=== PATIENT | female | born 1945 | race Caucasian/White ===

== ENCOUNTER 2016-05-19 07:07 | Outpatient (RCR) | payer OTHER ==
[~2016-05-19] VITALS: Ht 170.2 cm; Wt 70.0 kg
[2016-05-19] MEDS ORDERED: NS 550ML IV ONE ×2 (07:08)
[2016-05-19] MEDS ORDERED: Methohexital Sodium Syr 100mg/10ml IVP ONE ×2 (07:08)
[2016-05-19] MEDS ORDERED: Succinylcholine 20mg/ml 10ml vial ONE ×2 (07:08)
[2016-05-26] MEDS ORDERED: Succinylcholine 20mg/ml 10ml vial ONE (08:00)
[2016-05-26] MEDS ORDERED: Methohexital Sodium Syr 100mg/10ml IVP ONE (08:00)
[2016-05-26] MEDS ORDERED: NS 550ML IV ONE (08:00)
[2016-05-26] MEDS ORDERED: Atropine Sulfate 0.4mg/ml inj IVP PRN (10:18)
[2016-05-31] MEDS ORDERED: NS 550ML IV ONE (07:00)
[2016-05-31] MEDS ORDERED: Methohexital Sodium 500mg Vial IVP ONE (07:00)
[2016-05-31] MEDS ORDERED: Succinylcholine 20mg/ml 10ml vial ONE (07:00)
[2016-06-02] MEDS ORDERED: Succinylcholine 20mg/ml 10ml vial ONE (07:00)
[2016-06-02] MEDS ORDERED: Methohexital Sodium Syr 100mg/10ml IVP ONE (07:00)
[2016-06-02] MEDS ORDERED: NS 550ML IV ONE (07:00)
[2016-06-04] MEDS ORDERED: NS 550ML IV ONE (08:59)
[2016-06-04] MEDS ORDERED: Methohexital Sodium 500mg Vial IVP ONE (08:59)
[2016-06-04] MEDS ORDERED: Succinylcholine 20mg/ml 10ml vial ONE (08:59)
== END 2016-06-04 | disposition home or self-care (01) ==
LOC: ECT 07:07
DX: F31.63 Bipolar disorder, current episode mixed, severe, without psychotic features (principal); G62.9 Polyneuropathy, unspecified; I12.9 Hypertensive chronic kidney disease with stage 1 through stage 4 chronic kidney disease, or unspecified chronic kidney disease; N18.1 Chronic kidney disease, stage 1; G56.02 Carpal tunnel syndrome, left upper limb; M81.0 Age-related osteoporosis without current pathological fracture; Z88.6 Allergy status to analgesic agent; Z88.0 Allergy status to penicillin
CPT/HCPCS: 90870; J0330; J2405; J3490; J7040

== ENCOUNTER 2016-06-07 12:55 | Outpatient (RCR) | payer OTHER ==
[~2016-06-07] VITALS: Ht 170.2 cm; Wt 64.0 kg
[2016-06-07] MEDS ORDERED: Methohexital Sodium 500mg Vial IVP ONE (12:56)
[2016-06-07] MEDS ORDERED: Succinylcholine 20mg/ml 10ml vial ONE (12:56)
[2016-06-07] MEDS ORDERED: NS 550ML IV ONE (12:56)
[2016-06-11] MEDS ORDERED: Glycopyrrolate 0.2mg/ml 1ml Vial ONE (08:00)
[2016-06-11] MEDS ORDERED: NS 550ML IV ONE ×2 (08:00)
[2016-06-11] MEDS ORDERED: Diazepam 10mg/2ml Inj ONE (08:00)
[2016-06-11] MEDS ORDERED: Methohexital Sodium Syr 100mg/10ml IVP ONE (08:00)
[2016-06-11] MEDS ORDERED: Ketamine 500mg Inj ONE (08:00)
[2016-06-11] MEDS ORDERED: Succinylcholine 20mg/ml 10ml vial ONE ×2 (08:00)
[2016-06-25] MEDS ORDERED: NS 550ML IV ONE (08:00)
[2016-06-25] MEDS ORDERED: Methohexital Sodium Syr 100mg/10ml IVP ONE (08:00)
[2016-06-25] MEDS ORDERED: Succinylcholine 20mg/ml 10ml vial ONE (08:00)
== END 2016-07-04 | disposition home or self-care (01) ==
LOC: ECT 12:55
DX: F31.63 Bipolar disorder, current episode mixed, severe, without psychotic features (principal)
CPT/HCPCS: 90870; J0330; J2405; J3490; J7040

== ENCOUNTER 2016-07-05 06:42 | Outpatient (RCR) | payer OTHER ==
[~2016-07-05] VITALS: Ht 170.2 cm; Wt 64.0 kg
[2016-07-05] MEDS ORDERED: Methohexital Sodium Syr 100mg/10ml IVP ONE (06:43)
[2016-07-05] MEDS ORDERED: Succinylcholine 20mg/ml 10ml vial ONE (06:43)
[2016-07-05] MEDS ORDERED: NS 550ML IV ONE (06:43)
[2016-07-07] MEDS ORDERED: Methohexital Sodium Syr 100mg/10ml IVP ONE (07:00)
[2016-07-07] MEDS ORDERED: NS 550ML IV ONE (07:00)
[2016-07-07] MEDS ORDERED: Succinylcholine 20mg/ml 10ml vial ONE (07:00)
[2016-07-09] MEDS ORDERED: Succinylcholine 20mg/ml 10ml vial ONE (07:00)
[2016-07-09] MEDS ORDERED: NS 550ML IV ONE (07:00)
[2016-07-09] MEDS ORDERED: Methohexital Sodium Syr 100mg/10ml IVP ONE (07:00)
[2016-07-12] MEDS ORDERED: Succinylcholine 20mg/ml 10ml vial ONE (08:00)
[2016-07-12] MEDS ORDERED: NS 550ML IV ONE (08:00)
[2016-07-12] MEDS ORDERED: Methohexital Sodium Syr 100mg/10ml IVP ONE (08:00)
[2016-07-14] MEDS ORDERED: NS 550ML IV ONE (07:00)
[2016-07-14] MEDS ORDERED: Succinylcholine 20mg/ml 10ml vial ONE (07:00)
[2016-07-14] MEDS ORDERED: Atropine Sulfate 0.4mg/ml inj IVP PRN (09:31)
[2016-07-16] MEDS ORDERED: NS 550ML IV ONE (12:30)
[2016-07-16] MEDS ORDERED: Methohexital Sodium Syr 100mg/10ml IVP ONE (12:30)
[2016-07-16] MEDS ORDERED: Succinylcholine 20mg/ml 10ml vial ONE (12:30)
[2016-07-19] MEDS ORDERED: NS 550ML IV ONE (07:00)
[2016-07-19] MEDS ORDERED: Succinylcholine 20mg/ml 10ml vial ONE (07:00)
[2016-07-19] MEDS ORDERED: Methohexital Sodium Syr 100mg/10ml IVP ONE (07:00)
[2016-07-23] MEDS ORDERED: Succinylcholine 20mg/ml 10ml vial ONE (08:00)
[2016-07-23] MEDS ORDERED: Methohexital Sodium Syr 100mg/10ml IVP ONE (08:00)
[2016-07-23] MEDS ORDERED: NS 550ML IV ONE (08:00)
== END 2016-08-04 | disposition home or self-care (01) ==
LOC: ECT 06:42
DX: F31.63 Bipolar disorder, current episode mixed, severe, without psychotic features (principal)
CPT/HCPCS: 90870; J0330; J2405; J7040

== ENCOUNTER 2016-08-06 05:37 | Outpatient (RCR) | payer MEDICARE, OTHER ==
[~2016-08-06] VITALS: Ht 170.2 cm; Wt 64.0 kg
[2016-08-16] MEDS ORDERED: Methohexital Sodium 500mg Vial IVP ONE (19:49)
[2016-08-16] MEDS ORDERED: Succinylcholine 20mg/ml 10ml vial ONE (19:49)
[2016-08-16] MEDS ORDERED: NS 550ML IV ONE (19:49)
[2016-09-01] MEDS ORDERED: NS 550ML IV ONE (12:30)
[2016-09-01] MEDS ORDERED: Succinylcholine 20mg/ml 10ml vial ONE (12:30)
[2016-09-01] MEDS ORDERED: Methohexital Sodium Syr 100mg/10ml IVP ONE (12:30)
== END 2016-09-03 | disposition home or self-care (01) ==
LOC: ECT 05:37
DX: F31.61 Bipolar disorder, current episode mixed, mild (principal)
CPT/HCPCS: 90870; J0330; J2405; J3490; J7040

== ENCOUNTER 2016-10-11 07:15 | Outpatient (RCR) | payer MEDICARE ==
[~2016-10-11] VITALS: Ht 170.2 cm; Wt 64.0 kg
[2016-10-18] MEDS ORDERED: Methohexital Sodium Syr 100mg/10ml IVP ONE (07:00)
[2016-10-18] MEDS ORDERED: Succinylcholine 20mg/ml 10ml vial ONE (07:00)
[2016-10-18] MEDS ORDERED: NS 550ML IV ONE (07:00)
[2016-10-18] MEDS ORDERED: Atropine Sulfate 0.4mg/ml inj IVP PRN (09:48)
== END 2016-11-04 | disposition home or self-care (01) ==
LOC: ECT 07:15
DX: F31.63 Bipolar disorder, current episode mixed, severe, without psychotic features (principal)
CPT/HCPCS: 90870; J0330; J2405; J7040

== ENCOUNTER 2016-11-10 07:38 | Outpatient (RCR) | payer MEDICARE ==
[~2016-11-10] VITALS: Ht 170.2 cm; Wt 64.4 kg
[2016-11-10] MEDS ORDERED: NS 500ML IV ONE (07:39)
[2016-11-10] MEDS ORDERED: Methohexital Sodium Syr 100mg/10ml IVP ONE (07:39)
[2016-11-10] MEDS ORDERED: Succinylcholine 20mg/ml 10ml vial ONE (07:39)
[2016-11-10] MEDS ORDERED: Sodium Chloride 500ML 500 ML IV ONE (16:45)
[2016-11-29] MEDS ORDERED: Succinylcholine 20mg/ml 10ml vial ONE (06:00)
[2016-11-29] MEDS ORDERED: Methohexital Sodium Syr 100mg/10ml IVP ONE (06:00)
[2016-11-29] MEDS ORDERED: NS 500ML IV ONE (06:00)
[2016-11-29] MEDS ORDERED: Sodium Chloride 500ML 500 ML IV ONE (10:40)
== END 2016-12-04 | disposition home or self-care (01) ==
LOC: ECT 07:38
DX: F31.63 Bipolar disorder, current episode mixed, severe, without psychotic features (principal)
CPT/HCPCS: 90870; J0330; J2405; J7040

== ENCOUNTER 2016-12-06 10:13 | Outpatient (RCR) | payer MEDICARE ==
[~2016-12-06] VITALS: Ht 170.2 cm; Wt 64.0 kg
[2016-12-06] MEDS ORDERED: Succinylcholine 20mg/ml 10ml vial ONE ×5 (10:14)
[2016-12-06] MEDS ORDERED: Methohexital Sodium 500mg Vial IVP ONE (10:14)
[2016-12-06] MEDS ORDERED: Methohexital Sodium Syr 100mg/10ml IVP ONE ×4 (10:14)
[2016-12-06] MEDS ORDERED: NS 500ML IV ONE ×5 (10:14)
[2016-12-06] MEDS ORDERED: Sodium Chloride 500ML 500 ML IV ONE (10:57)
[2016-12-10] MEDS ORDERED: Succinylcholine 20mg/ml 10ml vial ONE (07:00)
[2016-12-10] MEDS ORDERED: Methohexital Sodium Syr 100mg/10ml IVP ONE (07:00)
[2016-12-10] MEDS ORDERED: NS 500ML IV ONE (07:00)
[2016-12-10] MEDS ORDERED: Sodium Chloride 500ML 500 ML IV ONE (09:20)
[2016-12-13] MEDS ORDERED: Methohexital Sodium Syr 100mg/10ml IVP ONE (07:00)
[2016-12-13] MEDS ORDERED: NS 500ML IV ONE (07:00)
[2016-12-13] MEDS ORDERED: Succinylcholine 20mg/ml 10ml vial ONE (07:00)
[2016-12-13] MEDS ORDERED: Sodium Chloride 500ML 500 ML IV ONE (09:53)
[2016-12-15] MEDS ORDERED: NS 500ML IV ONE (10:26)
[2016-12-15] MEDS ORDERED: Succinylcholine 20mg/ml 10ml vial ONE (10:26)
[2016-12-15] MEDS ORDERED: Methohexital Sodium Syr 100mg/10ml IVP ONE (10:26)
[2016-12-15] MEDS ORDERED: Sodium Chloride 500ML 500 ML IV ONE (10:26)
[2016-12-17] MEDS ORDERED: Succinylcholine 20mg/ml 10ml vial ONE (07:00)
[2016-12-17] MEDS ORDERED: Etomidate 40mg/20ml Inj IV ONE (07:00)
[2016-12-17] MEDS ORDERED: NS 500ML IV ONE (07:00)
[2016-12-17] MEDS ORDERED: Sodium Chloride 500ML 500 ML IV ONE (08:27)
[2016-12-22 10:52] VITALS: BP 136/79
[2016-12-22 11:10] VITALS: BP 134/75
[2016-12-22 11:15] VITALS: BP 141/79
[2016-12-22 11:20] VITALS: BP 136/58
[2016-12-22 11:25] VITALS: BP 118/58
[2016-12-24] MEDS ORDERED: Sodium Chloride 500ML 500 ML IV ONE (08:14)
[2016-12-24 08:15] VITALS: BP 144/59
[2016-12-24 08:20] VITALS: BP 139/60
[2016-12-24 08:25] VITALS: BP 135/52
[2016-12-24 08:30] VITALS: BP 120/55
[2016-12-24 11:18] VITALS: BP 120/55
[2016-12-27 09:40] VITALS: BP 142/67
[2016-12-27] MEDS ORDERED: Sodium Chloride 500ML 500 ML IV ONE (09:50)
[2016-12-27 09:55] VITALS: BP_SYST 148; BP_SYST 150; BP_DIAS 55; BP_DIAS 57
[2016-12-27 10:00] VITALS: BP 143/46
[2016-12-27 10:05] VITALS: BP 127/53
[2016-12-27 10:10] VITALS: BP 121/55
[2017-01-03] MEDS ORDERED: Methohexital Sodium Syr 100mg/10ml IVP ONE (07:00)
[2017-01-03] MEDS ORDERED: NS 500ML IV ONE (07:00)
[2017-01-03] MEDS ORDERED: Succinylcholine 20mg/ml 10ml vial ONE (07:00)
[2017-01-03] MEDS ORDERED: Sodium Chloride 500ML 500 ML IV ONE (08:32)
[2017-01-03 08:35] VITALS: BP 140/62
[2017-01-03 08:40] VITALS: BP 141/58
[2017-01-03 08:45] VITALS: BP 131/52
[2017-01-03 08:50] VITALS: BP 127/56
== END 2017-01-04 | disposition home or self-care (01) ==
LOC: ECT 10:13
DX: F31.63 Bipolar disorder, current episode mixed, severe, without psychotic features (principal)
CPT/HCPCS: 90870; J0330; J2405; J3490; J7040

== ENCOUNTER 2017-01-17 08:33 | Outpatient (RCR) | payer MEDICARE ==
[~2017-01-17] VITALS: Ht 170.2 cm; Wt 64.0 kg
[2017-01-19] MEDS ORDERED: Methohexital Sodium Syr 100mg/10ml IVP ONE (09:00)
[2017-01-19] MEDS ORDERED: Succinylcholine 20mg/ml 10ml vial ONE (09:00)
[2017-01-19] MEDS ORDERED: NS 500ML ONE (09:00)
[2017-01-19 10:13] VITALS: BP 150/64
[2017-01-19] MEDS ORDERED: Sodium Chloride 500ML 500 ML IV ONE (10:28)
[2017-01-19 10:30] VITALS: BP 130/68
[2017-01-19 10:35] VITALS: BP 129/52
[2017-01-19 10:40] VITALS: BP 132/52
[2017-01-19 10:45] VITALS: BP 134/46
[2017-02-02] MEDS ORDERED: Methohexital Sodium Syr 100mg/10ml IVP ONE (08:00)
[2017-02-02] MEDS ORDERED: NS 500ML ONE (08:00)
[2017-02-02] MEDS ORDERED: Succinylcholine 20mg/ml 10ml vial ONE (08:00)
[2017-02-02 09:36] VITALS: BP 158/81
[2017-02-02] MEDS ORDERED: Sodium Chloride 500ML 500 ML IV ONE (09:52)
[2017-02-02 09:55] VITALS: BP 140/62
[2017-02-02 10:00] VITALS: BP 140/58
[2017-02-02 10:05] VITALS: BP 139/58
[2017-02-02 10:10] VITALS: BP 142/58
== END 2017-02-03 | disposition home or self-care (01) ==
LOC: ECT 08:33
DX: F31.63 Bipolar disorder, current episode mixed, severe, without psychotic features (principal)
CPT/HCPCS: 90870; J0330; J2405; J7040

== ENCOUNTER 2017-02-09 06:56 | Outpatient (RCR) | payer MEDICARE ==
[~2017-02-09] VITALS: Ht 170.2 cm; Wt 64.0 kg
[2017-02-09] MEDS ORDERED: Succinylcholine 20mg/ml 10ml vial ONE (06:57)
[2017-02-09] MEDS ORDERED: Methohexital Sodium Syr 100mg/10ml IVP ONE (06:57)
[2017-02-09] MEDS ORDERED: NS 500ML ONE (06:57)
[2017-02-14 10:35] VITALS: BP 143/70
[2017-02-14] MEDS ORDERED: Sodium Chloride 500ML 500 ML IV ONE (10:49)
[2017-02-14 10:50] VITALS: BP 141/51
[2017-02-14 10:55] VITALS: BP 141/51
[2017-02-14 11:00] VITALS: BP 139/56
[2017-02-14 11:05] VITALS: BP 140/56
[2017-02-21] MEDS ORDERED: Succinylcholine 20mg/ml 10ml vial ONE (08:00)
[2017-02-21] MEDS ORDERED: NS 500ML ONE (08:00)
[2017-02-21] MEDS ORDERED: Methohexital Sodium Syr 100mg/10ml IVP ONE (08:00)
[2017-02-21 09:33] VITALS: BP 169/89
[2017-02-21] MEDS ORDERED: Sodium Chloride 500ML 500 ML IV ONE (09:44)
[2017-02-21 09:45] VITALS: BP 146/70
[2017-02-21 09:50] VITALS: BP 132/52
[2017-02-21 09:55] VITALS: BP 133/58
[2017-02-21 10:00] VITALS: BP 134/54
== END 2017-03-06 | disposition home or self-care (01) ==
LOC: ECT 06:56
DX: F31.63 Bipolar disorder, current episode mixed, severe, without psychotic features (principal)
CPT/HCPCS: 90870; J0330; J2405; J7040

== ENCOUNTER 2017-03-09 09:06 | Outpatient (RCR) | payer MEDICARE ==
[~2017-03-09] VITALS: Ht 170.2 cm; Wt 64.0 kg
[2017-03-09] MEDS ORDERED: NS 500ML ONE ×2 (09:07)
[2017-03-09] MEDS ORDERED: Methohexital Sodium Syr 100mg/10ml IVP ONE ×2 (09:07)
[2017-03-09] MEDS ORDERED: Succinylcholine 20mg/ml 10ml vial ONE ×2 (09:07)
[2017-03-09 10:37] VITALS: BP 159/68
[2017-03-09] MEDS ORDERED: Sodium Chloride 500ML 500 ML IV ONE (10:50)
[2017-03-09 10:51] VITALS: BP 132/55
[2017-03-09 10:56] VITALS: BP 140/57
[2017-03-09 11:01] VITALS: BP 141/57
[2017-03-09 11:06] VITALS: BP 146/69
[2017-03-16] MEDS ORDERED: Succinylcholine 20mg/ml 10ml vial ONE (07:00)
[2017-03-16] MEDS ORDERED: NS 500ML ONE (07:00)
[2017-03-16] MEDS ORDERED: Methohexital Sodium Syr 100mg/10ml IVP ONE (07:00)
[2017-03-16 11:02] VITALS: BP 161/90
[2017-03-16] MEDS ORDERED: Atropine Sulfate 0.4mg/ml inj IVP PRN (11:23)
[2017-03-16] MEDS ORDERED: Sodium Chloride 500ML 500 ML IV ONE (11:23)
[2017-03-16 11:25] VITALS: BP 137/64
[2017-03-16 11:30] VITALS: BP 133/60
[2017-03-16 11:35] VITALS: BP 132/61
[2017-03-16 11:40] VITALS: BP 135/64
[2017-03-23] MEDS ORDERED: Succinylcholine 20mg/ml 10ml vial ONE (08:00)
[2017-03-23] MEDS ORDERED: Methohexital Sodium Syr 100mg/10ml IVP ONE (08:00)
[2017-03-23] MEDS ORDERED: NS 500ML ONE (08:00)
[2017-03-23 10:27] VITALS: BP 153/79
[2017-03-23 10:45] VITALS: BP 137/61
[2017-03-23 10:50] VITALS: BP 145/74
[2017-03-23 10:55] VITALS: BP 134/58
[2017-03-23 11:00] VITALS: BP 139/72
[2017-03-24] MEDS ORDERED: Sodium Chloride 500ML 500 ML IV ONE (10:43)
[2017-03-28 11:00] VITALS: BP 151/89
[2017-03-28 11:15] VITALS: BP 129/64
[2017-03-28] MEDS ORDERED: Sodium Chloride 500ML 500 ML IV ONE (11:15)
[2017-03-28 11:20] VITALS: BP 142/71
[2017-03-28 11:25] VITALS: BP 132/65
[2017-03-28 11:30] VITALS: BP 135/63
[2017-03-30] MEDS ORDERED: NS 500ML ONE (07:00)
[2017-03-30] MEDS ORDERED: Methohexital Sodium Syr 100mg/10ml IVP ONE (07:00)
[2017-03-30] MEDS ORDERED: Succinylcholine 20mg/ml 10ml vial ONE (07:00)
[2017-03-30 11:19] VITALS: BP 137/84
[2017-03-30] MEDS ORDERED: Sodium Chloride 500ML 500 ML IV ONE (11:33)
[2017-03-30 11:35] VITALS: BP 145/60
[2017-03-30 11:40] VITALS: BP 139/52
[2017-03-30 11:45] VITALS: BP 139/52
[2017-03-30 11:50] VITALS: BP 138/48
== END 2017-04-06 | disposition home or self-care (01) ==
LOC: ECT 09:06
DX: F31.63 Bipolar disorder, current episode mixed, severe, without psychotic features (principal); I12.9 Hypertensive chronic kidney disease with stage 1 through stage 4 chronic kidney disease, or unspecified chronic kidney disease; N18.1 Chronic kidney disease, stage 1; G62.9 Polyneuropathy, unspecified; M81.0 Age-related osteoporosis without current pathological fracture; G56.02 Carpal tunnel syndrome, left upper limb
CPT/HCPCS: 90870; J0330; J2405; J7040

== ENCOUNTER 2017-04-11 06:08 | Outpatient (RCR) | payer MEDICARE ==
[~2017-04-11] VITALS: Ht 170.2 cm; Wt 64.0 kg
[2017-04-13] MEDS ORDERED: NS 500ML ONE (07:00)
[2017-04-13] MEDS ORDERED: Methohexital Sodium Syr 100mg/10ml IVP ONE (07:00)
[2017-04-13] MEDS ORDERED: Succinylcholine 20mg/ml 10ml vial ONE (07:00)
[2017-04-13 11:18] VITALS: BP 155/81
[2017-04-13 11:40] VITALS: BP 130/56
[2017-04-13] MEDS ORDERED: Sodium Chloride 500ML 500 ML IV ONE (11:40)
[2017-04-13 11:45] VITALS: BP 118/50
[2017-04-13 11:50] VITALS: BP 125/54
[2017-04-13 11:55] VITALS: BP 135/52
[2017-04-20] MEDS ORDERED: NS 500ML ONE (07:00)
[2017-04-20] MEDS ORDERED: Succinylcholine 20mg/ml 10ml vial ONE (07:00)
[2017-04-20] MEDS ORDERED: Methohexital Sodium Syr 100mg/10ml IVP ONE (07:00)
[2017-04-20 08:23] VITALS: BP 139/68
[2017-04-20] MEDS ORDERED: Sodium Chloride 500ML 500 ML IV ONE (08:37)
[2017-04-20 08:40] VITALS: BP 139/68
[2017-04-20 08:45] VITALS: BP 135/66
[2017-04-20 08:50] VITALS: BP 132/56
[2017-04-20 08:55] VITALS: BP 131/49
[2017-04-25] MEDS ORDERED: Albuterol/Ipratropium 3ml neb ONE (06:57)
[2017-04-25] MEDS ORDERED: Succinylcholine 20mg/ml 10ml vial ONE (07:00)
[2017-04-25] MEDS ORDERED: Methohexital Sodium Syr 100mg/10ml IVP ONE (07:00)
[2017-04-25] MEDS ORDERED: NS 500ML ONE (07:00)
[2017-04-25 08:42] VITALS: BP 145/54
[2017-04-25 09:01] VITALS: BP 135/58
[2017-04-25] MEDS ORDERED: Sodium Chloride 500ML 500 ML IV ONE (09:01)
[2017-04-25 09:06] VITALS: BP 134/56
[2017-04-25 09:11] VITALS: BP 126/56
[2017-04-25 09:16] VITALS: BP 128/48
[2017-05-02] MEDS ORDERED: Methohexital Sodium Syr 100mg/10ml IVP ONE (08:00)
[2017-05-02] MEDS ORDERED: NS 500ML ONE (08:00)
[2017-05-02] MEDS ORDERED: Succinylcholine 20mg/ml 10ml vial ONE (08:00)
[2017-05-02 09:02] VITALS: BP 155/76
[2017-05-02] MEDS ORDERED: Atropine Sulfate 0.4mg/ml inj IVP PRN (09:23)
[2017-05-02] MEDS ORDERED: Sodium Chloride 500ML 500 ML IV ONE (09:23)
[2017-05-02 09:25] VITALS: BP 129/53
[2017-05-02 09:30] VITALS: BP 126/53
[2017-05-02 09:35] VITALS: BP 126/49
[2017-05-02 09:40] VITALS: BP 122/53
[2017-05-03] MEDS ORDERED: Atropine Sulfate 0.4mg/ml inj IVP PRN (09:23)
[2017-05-03] MEDS ORDERED: Sodium Chloride 500ML 500 ML IV ONE (09:23)
== END 2017-05-04 | disposition home or self-care (01) ==
LOC: ECT 06:08
DX: F31.63 Bipolar disorder, current episode mixed, severe, without psychotic features (principal)
CPT/HCPCS: 90870; J0330; J2405; J7040; J7620

== ENCOUNTER 2017-05-11 07:05 | Outpatient (RCR) | payer MEDICARE ==
[~2017-05-11] VITALS: Ht 170.2 cm; Wt 64.0 kg
[~2017-05-11 07:05] MED LIST: Methohexital Sodium Syr 100mg/10ml IVP ONE; NS 500ML ONE; Succinylcholine 20mg/ml 10ml vial ONE
[2017-05-11 09:57] VITALS: BP 149/56
[2017-05-11] MEDS ORDERED: Sodium Chloride 500ML 500 ML IV ONE (10:12)
[2017-05-11 10:15] VITALS: BP 133/65
[2017-05-11 10:20] VITALS: BP 136/59
[2017-05-11 10:25] VITALS: BP 137/59
[2017-05-11 10:30] VITALS: BP 134/58
[2017-06-01] MEDS ORDERED: NS 500ML ONE (08:00)
[2017-06-01] MEDS ORDERED: Methohexital Sodium Syr 100mg/10ml IVP ONE (08:00)
[2017-06-01] MEDS ORDERED: Succinylcholine 20mg/ml 10ml vial ONE (08:00)
[2017-06-01 11:03] VITALS: BP 136/91
[2017-06-01] MEDS ORDERED: Sodium Chloride 500ML 500 ML IV ONE (11:23)
[2017-06-01 11:25] VITALS: BP 129/57
[2017-06-01 11:30] VITALS: BP 139/61
[2017-06-01 11:35] VITALS: BP 141/57
[2017-06-01 11:40] VITALS: BP 140/70
== END 2017-06-04 | disposition home or self-care (01) ==
LOC: ECT 07:05
DX: F31.63 Bipolar disorder, current episode mixed, severe, without psychotic features (principal)
CPT/HCPCS: 90870; J0330; J2405; J7040

== ENCOUNTER 2017-06-08 11:36 | Outpatient (RCR) | payer MEDICARE ==
[~2017-06-08] VITALS: Ht 170.2 cm; Wt 64.4 kg
[2017-06-08 10:20] VITALS: BP 137/66
[2017-06-08 10:25] VITALS: BP 134/71
[2017-06-08 10:30] VITALS: BP 140/62
[2017-06-08 10:40] VITALS: BP 137/66
[~2017-06-08 11:36] MED LIST changes: -Methohexital Sodium Syr 100mg/10ml IVP ONE; -NS 500ML ONE; +Sodium Chloride 500ML 500 ML IV ONE; -Succinylcholine 20mg/ml 10ml vial ONE
[2017-06-08] MEDS ORDERED: Methohexital Sodium 500mg Vial IVP ONE (11:37)
[2017-06-08] MEDS ORDERED: Succinylcholine 20mg/ml 10ml vial ONE ×2 (11:37)
[2017-06-08] MEDS ORDERED: Methohexital Sodium Syr 100mg/10ml IVP ONE (11:37)
[2017-06-08] MEDS ORDERED: NS 500ML ONE ×2 (11:37)
[2017-06-08 13:44] VITALS: BP 137/66
[2017-06-13 09:16] VITALS: BP 138/72
[2017-06-13 09:32] VITALS: BP 141/64
[2017-06-13] MEDS ORDERED: Sodium Chloride 500ML 500 ML IV ONE (09:32)
[2017-06-13 09:37] VITALS: BP 132/58
[2017-06-13 09:42] VITALS: BP 117/65
[2017-06-13 09:47] VITALS: BP_SYST 129; BP_SYST 139; BP_DIAS 52
[2017-06-22] MEDS ORDERED: Methohexital Sodium Syr 100mg/10ml IVP ONE (07:00)
[2017-06-22] MEDS ORDERED: Succinylcholine 20mg/ml 10ml vial ONE (07:00)
[2017-06-22] MEDS ORDERED: NS 500ML ONE (07:00)
[2017-06-22 08:55] VITALS: BP 148/80
[2017-06-22] MEDS ORDERED: Sodium Chloride 500ML 500 ML IV ONE (09:10)
[2017-06-22 09:15] VITALS: BP 130/47
[2017-06-22 09:20] VITALS: BP 125/53
[2017-06-22 09:25] VITALS: BP 97/71
[2017-06-22 09:30] VITALS: BP 122/56
== END 2017-07-04 | disposition home or self-care (01) ==
LOC: ECT 11:36
DX: F31.63 Bipolar disorder, current episode mixed, severe, without psychotic features (principal)
CPT/HCPCS: 90870; J0330; J2405; J3490; J7040

== ENCOUNTER 2017-07-06 05:49 | Outpatient (RCR) | payer MEDICARE ==
[~2017-07-06] VITALS: Ht 170.2 cm; Wt 64.0 kg
[2017-07-06] MEDS ORDERED: Methohexital Sodium Syr 100mg/10ml IVP ONE (05:50)
[2017-07-06] MEDS ORDERED: Succinylcholine 20mg/ml 10ml vial ONE (05:50)
[2017-07-06] MEDS ORDERED: NS 500ML ONE (05:50)
[2017-07-06 09:35] VITALS: BP 166/75
[2017-07-06] MEDS ORDERED: Sodium Chloride 500ML 500 ML IV ONE (09:58)
[2017-07-06 10:00] VITALS: BP 138/57
[2017-07-06 10:05] VITALS: BP 134/58
[2017-07-06 10:10] VITALS: BP 133/56
[2017-07-06 10:15] VITALS: BP 127/56
[2017-08-03] MEDS ORDERED: NS 500ML ONE (07:00)
[2017-08-03] MEDS ORDERED: Succinylcholine 20mg/ml 10ml vial ONE (07:00)
[2017-08-03] MEDS ORDERED: Methohexital Sodium Syr 100mg/10ml IVP ONE (07:00)
[2017-08-03 10:15] VITALS: BP 147/74
[2017-08-03 10:35] VITALS: BP 138/48
[2017-08-03] MEDS ORDERED: Sodium Chloride 500ML 500 ML IV ONE (10:38)
[2017-08-03 10:40] VITALS: BP 128/52
[2017-08-03 10:45] VITALS: BP 133/55
[2017-08-03 10:50] VITALS: BP 123/58
== END 2017-08-04 | disposition home or self-care (01) ==
LOC: ECT 05:49
DX: F31.63 Bipolar disorder, current episode mixed, severe, without psychotic features (principal)
CPT/HCPCS: 90870; J0330; J2405; J7040

== ENCOUNTER 2017-08-17 07:03 | Outpatient (RCR) | payer MEDICARE ==
[~2017-08-17] VITALS: Ht 33 cm; Wt 0.5 kg
[2017-08-22] MEDS ORDERED: Methohexital Sodium Syr 100mg/10ml IVP ONE (07:00)
[2017-08-22] MEDS ORDERED: NS 500ML ONE (07:00)
[2017-08-22] MEDS ORDERED: Succinylcholine 20mg/ml 10ml vial ONE (07:00)
[2017-08-22 07:34] VITALS: BP 151/79
[2017-08-22] MEDS ORDERED: Sodium Chloride 500ML 500 ML IV ONE (07:51)
[2017-08-22 07:55] VITALS: BP 137/67
[2017-08-22 08:00] VITALS: BP 136/53
[2017-08-22 08:05] VITALS: BP 133/69
[2017-08-22 08:10] VITALS: BP 141/90
== END 2017-09-03 | disposition home or self-care (01) ==
LOC: ECT 07:03
DX: F31.63 Bipolar disorder, current episode mixed, severe, without psychotic features (principal)
CPT/HCPCS: 90870; J0330; J2405; J7040

== ENCOUNTER 2017-09-12 05:38 | Outpatient (RCR) | payer MEDICARE ==
[~2017-09-12] VITALS: Ht 30.5 cm; Wt 0.5 kg
[2017-09-12] MEDS ORDERED: Methohexital Sodium Syr 100mg/10ml IVP ONE (05:39)
[2017-09-12] MEDS ORDERED: Succinylcholine 20mg/ml 10ml vial ONE (05:39)
[2017-09-12] MEDS ORDERED: NS 500ML ONE (05:39)
[2017-09-12] MEDS ORDERED: Sodium Chloride 500ML 500 ML IV ONE (09:14)
[2017-09-12 09:15] VITALS: BP 128/45
[2017-09-12 09:20] VITALS: BP 128/45
[2017-09-12 09:25] VITALS: BP 121/52
[2017-09-12 09:30] VITALS: BP 123/59
[2017-09-12 09:35] VITALS: BP 123/59
[2017-09-12 09:40] VITALS: BP 127/45
[2017-10-03] MEDS ORDERED: NS 500ML ONE (08:00)
[2017-10-03] MEDS ORDERED: Succinylcholine 20mg/ml 10ml vial ONE (08:00)
[2017-10-03] MEDS ORDERED: Methohexital Sodium Syr 100mg/10ml IVP ONE (08:00)
[2017-10-03 08:44] VITALS: BP 148/77
[2017-10-03] MEDS ORDERED: Sodium Chloride 500ML 500 ML IV ONE (08:57)
[2017-10-03 09:00] VITALS: BP 130/49
[2017-10-03 09:05] VITALS: BP 133/52
[2017-10-03 09:10] VITALS: BP 133/52
[2017-10-03 09:15] VITALS: BP 128/73
== END 2017-10-04 | disposition home or self-care (01) ==
LOC: ECT 05:38
DX: F31.63 Bipolar disorder, current episode mixed, severe, without psychotic features (principal)
CPT/HCPCS: 90870; J0330; J2405; J7040

== ENCOUNTER 2017-10-24 05:58 | Outpatient (RCR) | payer MEDICARE ==
[~2017-10-24] VITALS: Ht 170.2 cm; Wt 64.4 kg
[2017-11-02] MEDS ORDERED: Methohexital Sodium Syr 100mg/10ml IVP ONE (06:00)
[2017-11-02] MEDS ORDERED: Succinylcholine 20mg/ml 10ml vial ONE (06:00)
[2017-11-02] MEDS ORDERED: NS 500ML ONE (06:00)
[2017-11-02 08:33] VITALS: BP 138/86
[2017-11-02] MEDS ORDERED: Sodium Chloride 500ML 500 ML IV ONE (08:45)
[2017-11-02 08:50] VITALS: BP 119/58
[2017-11-02 08:55] VITALS: BP 121/51
[2017-11-02 09:00] VITALS: BP 125/52
[2017-11-02 09:05] VITALS: BP 130/48
== END 2017-11-04 | disposition home or self-care (01) ==
LOC: ECT 05:58
DX: F31.63 Bipolar disorder, current episode mixed, severe, without psychotic features (principal)
CPT/HCPCS: 90870; J0330; J2405; J7040

== ENCOUNTER 2017-11-21 08:24 | Outpatient (RCR) | payer MEDICARE ==
[~2017-11-21] VITALS: Ht 170.2 cm; Wt 64.0 kg
[2017-11-25] MEDS ORDERED: Methohexital Sodium Syr 100mg/10ml IVP ONE (07:00)
[2017-11-25] MEDS ORDERED: Succinylcholine 20mg/ml 10ml vial ONE (07:00)
[2017-11-25] MEDS ORDERED: NS 500ML ONE (07:00)
[2017-11-25 10:26] VITALS: BP 158/92
[2017-11-25] MEDS ORDERED: Sodium Chloride 500ML 500 ML IV ONE (10:39)
[2017-11-25 10:40] VITALS: BP 123/53
[2017-11-25 10:45] VITALS: BP 135/54
[2017-11-25 10:50] VITALS: BP 134/54
== END 2017-12-04 | disposition home or self-care (01) ==
LOC: ECT 08:24
DX: F31.63 Bipolar disorder, current episode mixed, severe, without psychotic features (principal)
CPT/HCPCS: 90870; J0330; J2405; J7040

== ENCOUNTER 2017-12-07 07:36 | Outpatient (RCR) | payer MEDICARE ==
[~2017-12-07] VITALS: Ht 30.5 cm; Wt 0.5 kg
[2017-12-07] MEDS ORDERED: NS 500ML ONE (07:37)
[2017-12-07] MEDS ORDERED: Succinylcholine 20mg/ml 10ml vial ONE (07:37)
[2017-12-07] MEDS ORDERED: Methohexital Sodium Syr 100mg/10ml IVP ONE (07:37)
[2017-12-14 10:07] VITALS: BP 127/87
[2017-12-14] MEDS ORDERED: Sodium Chloride 500ML 500 ML IV ONE (10:21)
[2017-12-14 10:25] VITALS: BP 117/51
[2017-12-14 10:30] VITALS: BP 126/52
[2017-12-14 10:35] VITALS: BP 131/53
== END 2018-01-04 | disposition home or self-care (01) ==
LOC: ECT 07:36
DX: F31.63 Bipolar disorder, current episode mixed, severe, without psychotic features (principal)
CPT/HCPCS: 90870; J0330; J2405; J7040

== ENCOUNTER 2018-01-09 05:18 | Outpatient (RCR) | payer MEDICARE ==
[2018-01-09] VITALS (7 sets, daily range): BP systolic 122–148; BP diastolic 42–78
[~2018-01-09] VITALS: Ht 170.2 cm; Wt 64.0 kg
[2018-01-09] MEDS ORDERED: NS 500ML ONE (05:19)
[2018-01-09] MEDS ORDERED: Methohexital Sodium Syr 100mg/10ml IVP ONE (05:19)
[2018-01-09] MEDS ORDERED: Succinylcholine 20mg/ml 10ml vial ONE (05:19)
[2018-01-09] MEDS ORDERED: Sodium Chloride 500ML 500 ML IV ONE (08:08)
== END 2018-02-03 | disposition home or self-care (01) ==
LOC: ECT 05:18
DX: F31.63 Bipolar disorder, current episode mixed, severe, without psychotic features (principal)
CPT/HCPCS: 90870; J0330; J2405; J7040

== ENCOUNTER 2018-02-06 05:36 | Outpatient (RCR) | payer MEDICARE ==
[~2018-02-06] VITALS: Ht 170.2 cm; Wt 64.4 kg
[2018-02-06] MEDS ORDERED: Methohexital Sodium Syr 100mg/10ml IVP ONE ×2 (05:37)
[2018-02-06] MEDS ORDERED: Succinylcholine 20mg/ml 10ml vial ONE ×2 (05:37)
[2018-02-06] MEDS ORDERED: NS 500ML ONE ×2 (05:37)
[2018-02-06 10:50] VITALS: BP 121/82
[2018-02-06] MEDS ORDERED: Atropine Sulfate 0.4mg/ml inj IVP PRN (11:19)
[2018-02-06] MEDS ORDERED: Sodium Chloride 500ML 500 ML IV ONE (11:19)
[2018-02-06 11:20] VITALS: BP 134/52
[2018-02-06 11:25] VITALS: BP 132/48
[2018-02-06 11:30] VITALS: BP 133/47
[2018-02-06 11:35] VITALS: BP 131/50
[2018-03-01 08:43] VITALS: BP 150/67
[2018-03-01] MEDS ORDERED: Sodium Chloride 500ML 500 ML IV ONE (08:57)
[2018-03-01 09:00] VITALS: BP 121/55
[2018-03-01 09:05] VITALS: BP 128/59
[2018-03-01 09:10] VITALS: BP 121/53
[2018-03-01 09:15] VITALS: BP 135/47
== END 2018-03-06 | disposition home or self-care (01) ==
LOC: ECT 05:36
DX: F31.63 Bipolar disorder, current episode mixed, severe, without psychotic features (principal)
CPT/HCPCS: 90870; J0330; J2405; J7040

== ENCOUNTER 2018-03-29 05:22 | Outpatient (RCR) | payer MEDICARE ==
[~2018-03-29] VITALS: Ht 30.5 cm; Wt 0.5 kg
[2018-03-29] MEDS ORDERED: Succinylcholine 20mg/ml 10ml vial ONE (05:23)
[2018-03-29] MEDS ORDERED: NS 500ML ONE (05:23)
[2018-03-29] MEDS ORDERED: Methohexital Sodium Syr 100mg/10ml IVP ONE (05:23)
[2018-03-29 09:20] VITALS: BP 146/82
[2018-03-29 09:45] VITALS: BP 128/61
[2018-03-29 09:50] VITALS: BP 141/56
[2018-03-29 09:55] VITALS: BP 123/48
[2018-03-29 10:00] VITALS: BP 126/47
== END 2018-04-06 | disposition home or self-care (01) ==
LOC: ECT 05:22
DX: F31.63 Bipolar disorder, current episode mixed, severe, without psychotic features (principal)
CPT/HCPCS: 90870; J0330; J2405; J7040

== ENCOUNTER 2018-04-24 06:45 | Outpatient (RCR) | payer MEDICARE ==
[~2018-04-24] VITALS: Ht 30.5 cm; Wt 0.5 kg
[2018-04-24] MEDS ORDERED: Succinylcholine 20mg/ml 10ml vial ONE (06:46)
[2018-04-24] MEDS ORDERED: NS 500ML ONE (06:46)
[2018-04-24] MEDS ORDERED: Methohexital Sodium Syr 100mg/10ml IVP ONE (06:46)
[2018-04-24 07:56] VITALS: BP 134/86
[2018-04-24 08:10] VITALS: BP 124/54
[2018-04-24 08:15] VITALS: BP 140/56
[2018-04-24 08:20] VITALS: BP 134/50
[2018-04-24 08:25] VITALS: BP 127/57
== END 2018-05-04 | disposition home or self-care (01) ==
LOC: ECT 06:45
DX: F31.63 Bipolar disorder, current episode mixed, severe, without psychotic features (principal)
CPT/HCPCS: 90870; J0330; J2405; J7040

== ENCOUNTER 2018-06-05 06:16 | Outpatient (RCR) | payer MEDICARE ==
[~2018-06-05] VITALS: Ht 170.2 cm; Wt 64.0 kg
[2018-06-05] MEDS ORDERED: NS 500ML ONE (06:17)
[2018-06-05] MEDS ORDERED: Methohexital Sodium Syr 100mg/10ml IVP ONE (06:17)
[2018-06-05] MEDS ORDERED: Succinylcholine 20mg/ml 10ml vial ONE (06:17)
[2018-06-05 08:46] VITALS: BP 147/98
[2018-06-05 09:00] VITALS: BP 141/59
[2018-06-05 09:05] VITALS: BP 140/57
[2018-06-05 09:10] VITALS: BP 140/51
[2018-06-05 09:15] VITALS: BP 144/57
== END 2018-07-04 | disposition home or self-care (01) ==
LOC: ECT 06:16
DX: F31.63 Bipolar disorder, current episode mixed, severe, without psychotic features (principal)
CPT/HCPCS: 90870; J0330; J2405; J7040

== ENCOUNTER 2018-07-05 06:12 | Outpatient (RCR) | payer MEDICARE ==
[~2018-07-05] VITALS: Ht 30.5 cm; Wt 0.5 kg
[2018-07-19] MEDS ORDERED: Methohexital Sodium Syr 100mg/10ml IVP ONE (07:00)
[2018-07-19] MEDS ORDERED: NS 500ML ONE (07:00)
[2018-07-19] MEDS ORDERED: Succinylcholine 20mg/ml 10ml vial ONE (07:00)
[2018-07-19 08:22] VITALS: BP 136/69
[2018-07-19 08:40] VITALS: BP 133/57
[2018-07-19 08:45] VITALS: BP 135/44
[2018-07-19 08:50] VITALS: BP 120/61
[2018-07-19 08:55] VITALS: BP 131/53
== END 2018-08-04 | disposition home or self-care (01) ==
LOC: ECT 06:12
DX: F31.63 Bipolar disorder, current episode mixed, severe, without psychotic features (principal)
CPT/HCPCS: 90870; J0330; J2405; J7040

== ENCOUNTER 2018-08-16 05:25 | Outpatient (RCR) | payer MEDICARE ==
[~2018-08-16] VITALS: Ht 30.5 cm; Wt 0.5 kg
[2018-08-16] MEDS ORDERED: Succinylcholine 20mg/ml 10ml vial ONE (05:26)
[2018-08-16] MEDS ORDERED: NS 500ML ONE (05:26)
[2018-08-16] MEDS ORDERED: Methohexital Sodium 500mg Vial IVP ONE (05:26)
[2018-08-16 08:33] VITALS: BP 165/82
[2018-08-16 08:48] VITALS: BP 150/76
[2018-08-16 08:53] VITALS: BP 141/73
[2018-08-16 08:58] VITALS: BP 129/48
[2018-08-16 09:03] VITALS: BP 132/46
== END 2018-09-03 | disposition home or self-care (01) ==
LOC: ECT 05:25
DX: F31.63 Bipolar disorder, current episode mixed, severe, without psychotic features (principal)
CPT/HCPCS: 90870; J0330; J2405; J3490; J7040

== ENCOUNTER 2018-09-13 06:31 | Outpatient (RCR) | payer MEDICARE | END 2018-10-04 | disposition home or self-care (01) | LOC: ECT 06:31 | DX: F31.63 Bipolar disorder, current episode mixed, severe, without psychotic features (principal); Z53.9 Procedure and treatment not carried out, unspecified reason ==